=== PATIENT | male | born 1955 | race Caucasian/White ===

== ENCOUNTER 2024-09-27 19:44 | Emergency (ER) | payer OTHER, MEDICARE, SELFPAY ==
--- NOTE | ~2024-09-27 | XR_ITS ---
EXAMINATION: XR HAND, RIGHT CLINICAL INFORMATION: swelling, pain COMPARISON: None available. TECHNIQUE: PA, lateral, and oblique views of the right hand. FINDINGS: Arthritic changes are seen involving the interphalangeal joints, distally greater than proximally. Most marked changes are seen in the fifth digit where there is some lateral angulation. Degenerative changes are also present at the first CMC joint. A cyst is noted in the capitate. No acute fractures are seen. No definite bony destructive lesions are seen to suggest osteomyelitis. XR/XR hand RT 2V IMPRESSION: Arthritic changes as described above. No acute finding. 6 Electronically signed by: Camilo Rivera MD 09/27/2024 09:52 PM EST RP
[2024-09-27 20:05] VITALS: BP 128/62; PULSE 54; RESP 14; TEMP 36.6; O2SAT 95; BMI 25.7
--- NOTE | 2024-09-27 20:05 | ED.GENADULT ---
HPI - General Adult General Chief complaint: Extremity Injury, Upper Stated complaint: right hand swollen Time Seen by Provider: 09/27/24 23:11 History of Present Illness ED Provider: James VASQUEZ narrative: The patient is a 68-year-old male who says that yesterday morning he noticed that he had some redness and swelling on the dorsum of his right hand. There has been no trauma or injury that he is aware of. He says he first noticed he had a problem when he had to put a workload of onto help his son do some house projects. He said he had some pain at that time but he was able to do the work that he had planned on doing with the son during the day. Yesterday evening there was increasing redness swelling, and pain. He says the pain was severe during the night last night and interfered with sleeping. He took naproxen. Today he still had redness and swelling on the dorsum of his hand. Also some redness on the back of the fingers. He says there was a fair amount of swelling earlier. Apparently he spoke to other family members who were worried he might have a blood clot in his arm and he was encouraged to come to the hospital. He has had no fever, sweats, chills. He does not think he had any bites. He has no history of gout. The patient is a [place]. [place]. He believes he is exposed to ticks the some frequency. He does not know of any definite tick bites however. Related Data Previous Rx's ?Medication ?Instructions ?Recorded doxycycline monohydrate 100 mg 100 mg PO BID #20 caps 09/28/24 capsule Allergies Allergy/AdvReac Type Severity Reaction Status Date / Time No Known Allergies Allergy Verified 09/27/24 20:07 Review of Systems Review of Systems: Yes all other systems are reviewed and are negative PMFSH Social History Social History Advance Directives: No Advance Directives Information Provided: No Do you have a plan to hurt others: No Plan Physical Exam ED Vital Signs: Vital Signs - 24 hr 09/27/24 20:05 09/27/24 22:21 09/28/24 00:00 Temperature 97.9 F 98 F 97.8 F Pulse Rate 54 54 49 L Respiratory Rate 14 18 16 Blood Pressure 128/62 131/65 144/77 H Pulse Oximetry 95 97 94 Oxygen Delivery Method Room Air Room Air Room Air 09/28/24 00:53 Temperature 97.8 F Pulse Rate 49 L Respiratory Rate 16 Blood Pressure 144/77 H Pulse Oximetry 94 Oxygen Delivery Method Room Air BMI result Body Mass Index 25.7 Const Other: The patient is a 68-year-old male who was awake and alert. He looks as though he is quite a vigorous 68-year-old. He does not seem in acute distress. HENMT Other: Face is symmetrical. Mucous membranes moist. Eyes General: appearance normal, both eyes and all related structures Conjunctivae: conjunctivae normal Sclerae: sclerae normal Neck Other: Moving his neck easily Resp Effort & Inspection: normal respiratory effort Auscultation: clear to auscultation bilaterally Cardio Rate: regular rate Rhythm: regular rhythm Heart sounds: S1 normal heart sound present, S2 normal heart sound present and Murmur heart sound present (No murmur) Skin Other: There is some redness and swelling to the dorsum of the right hand. This does not seem to be particularly tender. No fluctuance. Neuro Other: The patient is awake and alert with a normal mental status. Cranial nerves are intact. He has normal strength and sensation in the right hand. Extrem Other: There is some mild swelling and erythema to the dorsum of the left hand. The borders of the erythema are indistinct. There is no lymphangitis in the left arm. The erythema does not seem to extend proximal to the wrist. The erythema does not seem particularly tender. I can put the wrist through a good range of motion without causing any apparent discomfort. The same is true of all the other joints of the right hand. Course Course Course Narrative: This is a rapid medical exam. Defer additional HPI, ROS, PE to primary provider. 68 yo male with no medical history, right hand dominant here with complaints of swelling/redness to top of right hand since yesterday. Denies injury. Will check x-rays HENRY Clement APRN Medications Administered Discontinued Medications Generic Name Dose Route Start Last Admin Trade Name Freq PRN Reason Stop Dose Admin Doxycycline Monohydrate 100 mg 09/28/24 00:35 09/28/24 00:47 Doxycycline Monohydrate 100 Mg Capsule PO 09/28/24 00:36 100 mg ONCE ONE Administration Medical Decision Making Medical Decision Making [facility] Narrative: The patient is a 68-year-old male with an unusual syndrome of erythema on the dorsum of his right hand. He says that he had a great deal of pain earlier and he also says that the redness and swelling looked worse earlier. This seemed to have gotten better spontaneously. He was only having minimal discomfort of the time that I saw him. Diagnostic considerations include an infectious process or gout. The patient and his were concerned about the possibility of a blood clot but I do not feel the appearance of the hand is at all suggestive of a blood clot. Overall the patient does not describe a process which is consistent either with gout or with a cellulitis. His physical exam argues against any possibility of septic arthritis. Given that he is a [place] and exposed to ticks Lyme disease could also be considered. Overall the patient looks quite well. He had unremarkable labs including a normal uric acid. Normal renal function. A Lyme screen was sent. He will be started empirically on doxycycline. He should follow up with his PCP. Lab Data 09/27/24 23:54 09/27/24 23:54 Labs: Lab Results 09/27/24 Range/Units 23:54 WBC 7.8 (4.8-10.8) X10*3/uL RBC 4.47 L (4.60-5.80) X10*6/uL Hgb 14.2 (14.0-18.0) g/dl Hct 41.5 L (42.0-52.0) % MCV 92.8 (80.0-98.0) fL MCH 31.8 (27.0-33.0) pg MCHC 34.2 (31.0-36.0) g/dl RDW 13.4 (11.0-16.0) % Plt Count 183 (160-400) X10*3/uL MPV 10.0 (9.4-12.4) fL Immature Gran % (Auto) 0.5 H (0.0-0.4) % Neut % (Auto) 62.2 (45-73) % Lymph % (Auto) 25.5 (20-40) % Cecil % (Auto) 8.1 (2-11) % Eos % (Auto) 2.7 (0-4) % Baso % (Auto) 1.0 (0-2) % Lymph # (Auto) 2.0 (1.2-4.9) X10*3/uL Cecil # (Auto) 0.6 (0.1-1.2) X10*3/uL Eos # (Auto) 0.2 (0.0-0.4) X10*3/uL Baso # (Auto) 0.1 (0.0-0.2) X10*3/uL Abs Immat Gran (auto) 0.04 H (0.00-0.03) X10*3/uL Absolute Neuts (auto) 4.8 (2.0-8.3) x10*3/uL Absolute Nucleated RBC 0.000 (0.0-0.012) X10*3/uL Nucleated RBC % (auto) 0.0 (0.0-0.2) /100WBC ESR 2 (0-15) MM/HR Sodium 143 (135-145) mmol/L Potassium 4.1 (3.3-5.1) mmol/L Chloride 109 H (96-108) mmol/L Carbon Dioxide 25 (22-29) mmol/L Anion Gap 13 (12-20) BUN 16 (9-16) mg/dL Creatinine 0.85 (0.5-1.4) mg/dL Estim Creat Clear Calc 87.0 Estimated GFR > 60 Random Glucose 106 (60-115) mg/dL Uric Acid 5.6 (3.4-7.0) mg/dL Calcium 9.0 (8.4-10.2) mg/dL Total Bilirubin 0.3 (0.0-1.0) mg/dL AST 22 (5-37) U/L ALT 10 (0-40) U/L Alkaline Phosphatase 70 (39-117) U/L C-Reactive Protein < 0.10 (< or = 0.50) mg/dL Total Protein 5.9 L (6.5-8.0) g/dL Albumin 3.8 (3.5-5.0) g/dL Discharge Plan Discharge Clinical Impression: Right hand pain Patient Disposition: Home, Self-Care Additional Instructions: It is not clear to me what is causing the problem in your right hand. Your blood testing today is reassuring. You has been started on doxycycline in case there is an infectious component to what is happening in your hand. Additionally a test for Lyme disease has been sent. Please take the doxycycline 2 times a day as prescribed. You may use naproxen or ibuprofen as needed for pain. In addition you may use acetaminophen. Please contact your regular doctor's office on Sunday to set up a follow up appointment to discuss this further. Return to the emergency room if significantly worse. Prescriptions: New doxycycline monohydrate 100 mg capsule 100 mg PO BID Qty: 20 0RF Referrals: Caio Lyle MD [Primary Care Provider] - (Pain and redness of the dorsum of the right hand) Interventions: ED Discharge Assessment Last Done: 09/28/24 00:53 Discharge Date/Time: 09/28/24 00:57 Print Language: Lithuanian
[2024-09-27 22:21] VITALS: BP 131/65; PULSE 54; RESP 18; TEMP 36.6; O2SAT 97
[2024-09-28] VITALS: BP 144/77; PULSE 49; RESP 16; TEMP 36.6; O2SAT 94
[2024-09-28] LABS: MANUAL DIFF FLAG NO
[2024-09-28 00:02] LABS: Basophils Absolute Auto 0.1 X10*3/uL (0.0-0.2); Eosinophils Absolute Auto 0.2 X10*3/uL (0.0-0.4); Eosinophils Percent Auto 2.7 % (0-4); Hematocrit 41.5 % (42.0-52.0); Hemoglobin 14.2 g/dl (14.0-18.0); Imm Gran Abs Auto 0.04 X10*3/uL (0.00-0.03); Imm Gran Pct Auto 0.5 % (0.0-0.4); Lymphocytes Percent Auto 25.5 % (20-40); Mean Corpuscular HGB Conc 34.2 g/dl (31.0-36.0); Mean Corpuscular Hemoglobin 31.8 pg (27.0-33.0); Mean Corpuscular Volume 92.8 fL (80.0-98.0); Monocytes Absolute Auto 0.6 X10*3/uL (0.1-1.2); Monocytes Percent Auto 8.1 % (2-11); Neutrophils Absolute Auto 4.8 x10*3/uL (2.0-8.3); Neutrophils Percent Auto 62.2 % (45-73); Platelet Count 183 X10*3/uL (160-400); Red Blood Count 4.47 X10*6/uL (4.60-5.80); Red Cell Distribution Width 13.4 % (11.0-16.0); White Blood Count 7.8 X10*3/uL (4.8-10.8)
[2024-09-28 00:17] LABS: Alanine Aminotransferase 10 U/L (0-40); Albumin Level 3.8 g/dL (3.5-5.0); Alkaline Phosphatase 70 U/L (39-117); Anion Gap 13 (12-20); Aspartate Amino Transferase 22 U/L (5-37); Bilirubin Total 0.3 mg/dL (0.0-1.0); Blood Urea Nitrogen 16 mg/dL (9-16); C Reactive Protein < 0.10 mg/dL (< or = 0.50); Carbon Dioxide 25 mmol/L (22-29); Chloride 109 mmol/L (96-108); Estimated Glomerular Filt Rate > 60; Glucose Random 106 mg/dL (60-115); Potassium 4.1 mmol/L (3.3-5.1); Sodium 143 mmol/L (135-145); Total Protein 5.9 g/dL (6.5-8.0); Uric Acid 5.6 mg/dL (3.4-7.0)
[2024-09-28] MEDS: Doxycycline Monohydrate 100 MG CAPSULE PO (00:47)
[2024-09-28 00:53] VITALS: BP 144/77; PULSE 49; RESP 16; TEMP 36.6; O2SAT 94
[2024-09-28 00:54] LABS: Erythrocyte Sedimentation Rate 2 MM/HR (0-15)
[2024-09-30 12:52] LABS: Lyme Abs Screen <0.90 index
== END 2024-09-28 00:57 | disposition home or self-care (01) ==
PROVIDERS: Emergency Provider Emergency Medicine; PCP Internal Medicine
DX: M79.641 Pain in right hand (principal)
CPT/HCPCS: 36415; 73120; 80053; 84550; 85025; 85652; 86140; 86617; 86618; 99283; 99284

== ENCOUNTER 2025-06-06 13:50 | Emergency (ER) | payer MEDICARE, SELFPAY ==
--- NOTE | 2025-06-06 | ECG_ITS ---
Test Reason : ABD PAIN Blood Pressure : */* mmHG Vent. Rate : 44 BPM Atrial Rate : 44 BPM P-R Int : 160 ms QRS Dur : 84 ms QT Int : 450 ms P-R-T Axes : 69 5 31 degrees QTcB Int : 384 ms Marked sinus bradycardia Abnormal ECG No previous ECGs available Referred By: Generic ED Physician Electronically Signed By: Chase Dubon
--- NOTE | ~2025-06-06 | US_ITS ---
CLINICAL HISTORY: gallbladder Us r o carlos US abdomen limited Comparison: None provided Findings: The common duct is 0.4-0.8 cm in diameter. The gallbladder is normal. There is no sonographic Mcmanus sign. IMPRESSION: Unremarkable ultrasound of the gallbladder. This document has been electronically signed by: Carmen Romero MD on 06/06/2025 16:39:40
--- NOTE | ~2025-06-06 | CT_ITS ---
CLINICAL HISTORY: renal colic CT abdomen and pelvis without contrast Comparison: None Findings: Examination is limited by without contrast. Lung bases are clear. No pleural effusion. Liver, Pancreas, Spleen and both adrenals show normal size, shape and attenuation on present unenhanced scan. No CBD dilatation. No calcified gallstone in the gallbladder. Both kidneys reveal normal in size, shape, position and attenuation. Limited evaluation of the cystic lesions of the bilateral kidney. A small cystic lesion in the right kidney has peripheral calcification. No kidney stone. Mild right hydroureteronephrosis. The IVC, aorta and portal vein are within normal position and caliber. Atherosclerosis calcification of the aorta. No evidence of retroperitoneal lymphadenopathy or ascites. Multiple calcifications of the pelvis are likely to be phleboliths. The visible parts of the bowel loops show no obvious mass lesions or wall thickening. Appendix appears normal. 3 mm stone of the right posterior bladder/ureterovesicular junction series 3, image 71. Prostatomegaly. Degenerative changes of the spine. IMPRESSION: Mild right hydroureteronephrosis. 3 mm stone of the right posterior bladder/ureterovesicular junction. A mild complex cyst of the right kidney. Further evaluation by nonemergent renal ultrasound is recommended as indicated. Additional findings as above. This document has been electronically signed by: Carmen Romero MD on 06/06/2025 19:39:23
--- NOTE | ~2025-06-06 | XR_ITS ---
CLINICAL HISTORY: chest pain 2 view chest x-ray Comparison: None provided Findings: No consolidation or effusion. Heart size is normal. No acute fracture. IMPRESSION: 1. No acute findings. This document has been electronically signed by: Carmen Romero MD on 06/06/2025 16:32:16
[2025-06-06 13:55] VITALS: BP 138/57; BP 169/78; PULSE 43; PULSE 47; RESP 17; TEMP 36.7; O2SAT 93; O2SAT 96; BMI 25.7
[2025-06-06 14:10] VITALS: BP 145/68; PULSE 43; RESP 14; O2SAT 88; O2SAT 92
--- OUTSIDE RECORDS SUMMARY | 2025-06-06 14:31 | XMS_ITS | Clinical Summary ---
Author Organization [facility] Address [facility] [address] [address] Phone Care Team Providers Care E Commerce Developer Name Role Phone Caio Lyle MD Primary Care Provider [phone] Allergies No known active allergies Medications acetaminophen (TYLENOL) 325 mg tablet Take 2 tablets (650 mg total) by mouth every 4 (four) hours as needed for mild pain or fever. 0 6 Active Additional Information Patient not taking.Reported on 05/10/2016 aspirin 325 MG tablet Take 1 tablet (325 mg total) by mouth daily. 6 Active Additional Information Patient not taking.Reported on 05/10/2016 oxyCODONE 5 MG immediate release tablet Take 1-2 tablets (5-10 mg total) by mouth every 3 (three) hours as needed for moderate pain. Earliest Fill Date: 02/08/16 50 tablet 0 6 Active Additional Information Patient not taking.Reported on 05/10/2016 cefadroxil (DURICEF) 500 MG capsule Take 1 capsule (500 mg total) by mouth 2 (two) times a day. 20 capsule 0 6 Active Additional Information Patient not taking.Reported on 05/10/2016 oxyCODONE 5 MG immediate release tablet Take 1-2 tablets (5-10 mg total) by mouth every 4 (four) hours as needed for moderate pain. 60 tablet 0 6 Active Additional Information Patient not taking.Reported on 05/10/2016 oxyCODONE 5 MG immediate release tablet Take 1 tablet (5 mg total) by mouth every 4 (four) hours as needed for moderate pain. 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 Not on tera e 02/16/2023 Are you concerned about learning? Not on file 02/16/2023 No 02/16/2023 No 02/16/2023 Digital Access Answer Date Recorded No 03/19/2023 No 03/19/2023 No 03/19/2023 Reliable internet access at home? Not on file 03/19/2023 Device with a working camera? Not on file Sex and Gender Information Value Date Recorded Sex Assigned at Not on file Legal Sex Male 12:24 PM EDT Gender Identity Not on file Sexual Orientation Not on file Last Filed Vital Signs Vital Sign Reading Time Taken Comments Blood Pressure 136/68 02/08/2016 1:00 PM EDT Pulse 60 02/08/2016 1:00 PM EDT Temperature 36.5 C (97.7 F) 08/02/2016 1:51 PM EDT Respiratory Rate 20 02/08/2016 1:00 PM EDT Oxygen Saturation 95% 02/08/2016 1:00 PM EDT Inhaled Oxygen Concentration - - Weight 83 kg (183 lb) 08/02/2016 1:51 PM EDT Height 177.8 cm (5' 10 ) 08/02/2016 1:51 PM EDT Body Mass Index 26.26 08/02/2016 1:51 PM EDT Plan of Treatment Health Maintenance Due Date Last Done Comments Adult Td,Tdap Booster 1956 LIPID PANEL 1956 DEPRESSION SCREENING 1968 HEPATITIS C SCREENING 1974 COLOGUARD 2001 COLONOSCOPY 2001 COLORECTAL CANCER SCREENING 2001 FIT TEST 2001 FOBT 2001 SIGMOIDOSCOPY 2001 VIRTUAL COLONOSCOPY 2001 PNEUMOCOCCAL VACCINES (50+ y ears) (1 of 1 - PCV) 2006 ZOSTER VACCINES (1 of 2) 2006 COVID-19 VACCINE (1 - 2023-2 5 season) 2024 RSV VACCINE (1 - 1-dose 75+ series) 2031 SMOKING STATUS SCREENING (On ce After 26 Yrs) Completed 08/02/2016 HEPATITIS A VACCINES Aged Out No long er eligible based on patient's age to complete this topic HIB VACCINES Aged Out No longer eligi ble based on patient's age to complete this topic MENINGOCOCCAL VACCINES (ACWY) Aged Out No longer eligible based on patient's age to complete this topic MENINGOCOCCAL VACCINES (B) Aged Out N o longer eligible based on patient's age to complete this topic Medical Devices Implanted Type Area Commercial Green Building Architect Device Identifier Shelf Expiration Date Model / Serial / Lot Wire Alonzo [id number] Stainless Steel Ea - [id number] Implanted:Qty: 1 on 02/07/2016 by Wild Patel MD at [facility] Right: Finger OSTEOMED [id number] / / Description:right 4th finger ; no lot# or exp date Wire Alonzo [id number] Stainless Steel Ea - [id number] Implanted:Qty: 1 on 02/07/2016 by Wild Patel MD at [facility] Right: Finger OSTEOMED [id number] / / Description:right 5th finger ; no lot# or exp date Insurance A[employer] HMO POS EPO AETNA O POS EPO O POS EPO AETNA O POS EPO O POS EPO AETNA O POS EPO O POS EPO AETNA HMO POS EPO WORKERS COMPENSATION Advance Directives For more information, please contact: [phone] (9AM - 5PM [facility], Sunday-Sunday) * Full Code (Presumed) (Latest Code Status on File) Date Activated Date Inactivated Comments 02/07/2016 9:45 PM 02/08/2016 7:03 PM Care Teams E Commerce Developer Relationship Specialty Start Date End Date Caio Lyle MD [address] [address] PCP - General Internal Medicine 02/16/16 Additional Source Comments The information contained in this document represents components of the legal health record. It is not the complete legal health record.[facility]
--- OUTSIDE RECORDS SUMMARY | 2025-06-06 14:31 | XMS_ITS | Encounter Summary ---
Author Organization [facility] Address [address] [place] [address] Care Team Providers Care Marketing Database Analyst Name Role Phone Caio Lyle MD Primary Care Provider [phone] Encounter Details Date Type Department Care Team (Late st Contact Info) Description 01/12/2025 Lab Requisition [facility] - Main Lab [address] [facility] [place] [address] Andrew Pathak MD [address] [place] [id number] Elevated prostate specific antigen (PSA) Social History Tobacco Use Types Packs/Day Years Used Date Smoking Tobacco: Former Cigarettes Smokeless Tobacco: Never Alcohol Use Standard Drinks/Week Comments Not Currently 0 (1 standard drink = 0.6 oz pur e alcohol) Interpersonal Safety Answer Date Record ed Physical Abuse 12/26/2024 Verbal Abuse 12/26/2024 Sex and Gender Information Value Date Recorded Sex Assigned at Male 12/25/2024 9:52 AM EST Legal Sex Male 9:09 AM EST Gender Identity Male 12/25/2024 9:52 AM EST Sexual Orientation Straight 12/25/2024 9: 52 AM EST documented as of this encounter Plan of Treatment Not on file documented as of this encounter Procedures Procedure Name Priority Date/Time Associated Diagnosis Comments FLUOROQUINOLONE RESISTANT GNR IDENTIFICATION AND SUSCEPTIBILITY Routine 01/12/2025 8:04 AM EDT Elevated prostate specific antigen (PSA) CULTURE FLUOROQUINOLONE RESISTANT ORGANISM Routine 01/12/2025 8:04 AM EDT Elevated prostate specific antigen (PSA) documented in this encounter Results * Fluoroquinolone resistant GNR identification and susceptibility (01/12/2025 8:04 AM EDT) Result 1 No Fluoroquinolone Resistant GNR Detected. 01/16/2025 2:05 PM EDT [facility] Swab Rectum structure / Unknown Non-blood Collection / Unknown 01/12/2025 8:04 AM EDT 01/12/2025 10:18 AM EDT Narrative [facility] - 01/16/2025 2:05 PM EDT Performed at: 01 - [address] [id number] Truck Caterer: Almaz Ac MD, Phone: [phone] us Andrew Pathak MD LAB MICROBIOLOGY - GENERAL ORDER LANCE Final Result Performing Organization Address City/[facility]/ZIP Co de Phone Number [facility] * Culture fluoroquinolone resistant organism (01/12/2025 8:04 AM EDT) Fluoroquinolone Resist GNR Cul Final report 01/16/2025 2:05 PM EDT [facility] Swab Rectum structure / Unknown Non-blood Collection / Unknown 01/12/2025 8:04 AM EDT 01/12/2025 10:18 AM EDT Narrative [facility] - 01/16/2025 2:05 PM EDT Performed at: [facility] [id number] Truck Caterer: Almaz Ac MD, Phone: [phone] us Andrew Pathak MD LAB MICROBIOLOGY - GENERAL ORDER LANCE Final Result [facility] documented in this encounter Visit Diagnoses Diagnosis Elevated prostate specific antigen (PSA) documented in this encounter Care Teams Marketing Database Analyst Relationship Specialty Start Date End Date Caio Lyle MD PCP - General Internal Medicine 12/09/24 documented as of this encounter
[2025-06-06 14:40] LABS: MANUAL DIFF FLAG NO
--- NOTE | 2025-06-06 14:40 | PC.NURSE ---
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 pt reports associated nausea. denies any episodes of vomiting/diarrhea/fevers/chills. 75mcg fentanyl/4mg zofran HUMAN DEVELOPMENT PROFESSOR. pain improved s/p medication administration. hx diverticulitis/colon resection. recently dx w/ prostate cancer x 2 months ago - no current medications. upon ED arrival - a&ox4. vss and up to date aside from being bradycardic - pt reports HR in the 40s is his baseline. pt denies any chest pain/palpitations. pt also noted to be 89% on RA - denies hx asthma/copd. no sob/wob. pt placed on 2L via NC for supplemental O2. 20gIV in the left AC via EMS - patent/intact. tech bedside obtaining labs/performing ekg. pt pending to be picked up by provider. plan of care ongoing. call ziegler placed within reach.
[2025-06-06 14:44] LABS: Hematocrit 40.0 % (42.0-52.0); Hemoglobin 14.0 g/dl (14.0-18.0); Imm Gran Abs Auto 0.07 X10*3/uL (0.00-0.03); Imm Gran Pct Auto 0.6 % (0.0-0.4); Lymphocytes Absolute Auto 0.9 X10*3/uL (1.2-4.9); Mean Corpuscular HGB Conc 35.0 g/dl (31.0-36.0); Mean Corpuscular Hemoglobin 31.4 pg (27.0-33.0); Mean Corpuscular Volume 89.7 fL (80.0-98.0); NRBC Abs Auto 0.000 X10*3/uL (0.0-0.012); NRBC Pct Auto 0.0 /100WBC (0.0-0.2); Platelet Count 200 X10*3/uL (160-400); Red Blood Count 4.46 X10*6/uL (4.60-5.80); White Blood Count 12.1 X10*3/uL (4.8-10.8)
--- NOTE | 2025-06-06 14:48 | ED.ABDPAIN ---
HPI - Abdominal Pain General Chief Complaint: Abdominal Pain Stated Complaint: BACK PAIN Time Seen by Provider: 06/06/25 14:23 Source: patient Mode of arrival: ambulatory Limitations: no limitations History of Present Illness ED Provider: HPI narrative: 69-year-old male with multiple abdominal surgeries in the past, presenting with sudden onset of right upper quadrant abdominal pain, if it was documented in the right lower quadrant in triage it is a mistake, as he was cooking, it was sudden radiating up around to his flank, had an episode of nausea but no vomiting has had no chest pain no shortness of breath no fevers or chills, EMS provided 7 5 mcg of fentanyl and Zofran prior to arrival with improvement in his symptoms. He is brought to see his provider for prostate cancer that was diagnosed 2 months ago he is not on any medications at this time. No obstipation reported. Related Data Previous Rx's ?Medication ?Instructions ?Recorded doxycycline monohydrate 100 mg 100 mg PO BID #20 caps 09/28/24 capsule famotidine 40 mg tablet (Pepcid) 40 mg PO BEDTIME #60 tabs 06/06/25 oxycodone 5 mg tablet 5 mg PO Q6H PRN pain #10 tabs 06/06/25 Allergies Allergy/AdvReac Type Severity Reaction Status Date / Time No Known Allergies Allergy Verified 06/06/25 13:58 Review of Systems Constitutional: Reports as per [facility] Social History Social History Smoked in Last 30 Days: No Use of substances other than those prescribed or required for medical reasons: No Advance Directives: No Advance Directives Information Provided: Yes Do you have a plan to hurt others: No Plan Physical Exam ED Vital Signs: Vital Signs - 24 hr 06/06/25 13:55 06/06/25 14:10 06/06/25 14:10 Temperature 98.0 F Pulse Rate 47 L 43 L Respiratory Rate 17 14 Blood Pressure 138/57 L 145/68 H Pulse Oximetry 93 88 L 92 Oxygen Delivery Method Room Air Room Air Nasal Cannula Oxygen Flow Rate 2 06/06/25 16:35 06/06/25 19:16 Temperature 97.7 F 97.8 F Pulse Rate 47 L 46 L Respiratory Rate 15 14 Blood Pressure 128/62 137/66 Pulse Oximetry 93 95 Oxygen Delivery Method Room Air Room Air Oxygen Flow Rate BMI result Body Mass Index 25.7 Course Reevaluation(s) Reevaluation #1: I assumed care for this patient at 17:00 patient was waiting for result of the CT of the abdomen and pelvis. While patient in the ED and reviewing vital sign patient noted to be bradycardic patient declined any symptoms in particular no lightheadedness, no LOC, no headache, no palpitation, no chest pain, patient stated that he is very healthy and his heart rate is been on the lower side all his life, patient go to gym 3 to 4 times a week. Slight lipase elevation patient has no epigastric pain, vomiting. CT abdomen pelvis reveals:Mild right hydroureteronephrosis. 3 mm stone of the right posterior bladder/ureterovesicular junction. A mild complex cyst of the right kidney. Further evaluation by nonemergent renal ultrasound is recommended as indicated. Additional findings as above. Patient currently has no pain sitting comfortably. Patient will see his urologist this week patient was provided with a copy of CT report to reviewed with his urologist for a concern of complex cystic lesion on right kidney and recommended ultrasound; those finding were discussed with the patient and . Time: 20:10 Medical Decision Making Medical Decision Making [facility] Narrative: Presenting with right upper quadrant pain, considerations for workup as below, we will make sure this is not pulmonary, ACS related, highest differential is whether this is cholecystitis versus musculoskeletal pain, has already been medicated with fentanyl that will explain his bradycardia and he was slightly hypoxic on presentation but by the time I have evaluated him I have removed him off nasal cannula and he was doing well on room air, disposition to be determined. 16:36 continues to be pain-free Chest x-ray unremarkable, ultrasound we will await official report but there was no evidence for choledocholithiasis or cholecystitis Urine reveals blood we will order noncontrast CT to evaluate for kidney stones Differential Diagnosis Differential Diagnoses: The differential diagnosis associated with the presentation includes (Cholecystitis, pancreatitis, hepatitis, gastritis, cholangitis, choledocholithiasis, SBO, ACS) Admission/Observation Consideration of admission/observation: Escalation of care including admission/observation considered 2022 Emergency Medicine Coding Guide from [email or web address] on 06/06/2025 All calculations should be rechecked by clinician prior to use RESULT SUMMARY: 5 Estimated Level of Service Problems: Moderate (4) Risk: High (5) Data: Extensive (5) NARRATIVE MDM: This patient's problem complexity is Moderate as patient: has a new undiagnosed problem with uncertain prognosis but that could be serious. This patient's risk is High due to: overall presentation requiring evaluation for a potentially High-risk process. This patient's data complexity is Extensive due to: -multiple tests ordered/reviewed -external notes reviewed -independent historian used to support history -independent interpretation of imaging or EKG INPUTS: Number and Complexity ?> 5 = 4: undiagnosed new problem, uncertain outcome (e) Risk level ?> 4 = High Tests ordered ?> 3 = =3 Tests results reviewed (excluding labs) ?> 3 = =3 Prior external notes reviewed ?> 1 = 1 Assessment requiring and independent historian ?> 1 = Yes Independent interpretation of tests ?> 1 = Yes Discussed management/test interpretation w/external professional ?> 0 = No Lab Data MDM Lab Attestation statement: I reviewed the patient's lab results. 06/06/25 14:35 06/06/25 14:35 Labs: Lab Results 06/06/25 06/06/25 Range/Units 14:35 16:27 WBC 12.1 H (4.8-10.8) X10*3/uL RBC 4.46 L (4.60-5.80) X10*6/uL Hgb 14.0 (14.0-18.0) g/dl Hct 40.0 L (42.0-52.0) % MCV 89.7 (80.0-98.0) fL MCH 31.4 (27.0-33.0) pg MCHC 35.0 (31.0-36.0) g/dl RDW 13.7 (11.0-16.0) % Plt Count 200 (160-400) X10*3/uL MPV 9.9 (9.4-12.4) fL Immature Gran % (Auto) 0.6 H (0.0-0.4) % Neut % (Auto) 86.1 H (45-73) % Lymph % (Auto) 7.1 L (20-40) % [place] % (Auto) 5.0 (2-11) % Eos % (Auto) 0.8 (0-4) % Baso % (Auto) 0.4 (0-2) % Lymph # (Auto) 0.9 L (1.2-4.9) X10*3/uL [place] # (Auto) 0.6 (0.1-1.2) X10*3/uL Eos # (Auto) 0.1 (0.0-0.4) X10*3/uL Baso # (Auto) 0.1 (0.0-0.2) X10*3/uL Abs Immat Gran (auto) 0.07 H (0.00-0.03) X10*3/uL Absolute Neuts (auto) 10.4 H (2.0-8.3) x10*3/uL Absolute Nucleated RBC 0.000 (0.0-0.012) X10*3/uL Nucleated RBC % (auto) 0.0 (0.0-0.2) /100WBC Sodium 141 (135-145) mmol/L Potassium 3.6 (3.3-5.1) mmol/L Chloride 111 H (96-108) mmol/L Carbon Dioxide 24 (22-29) mmol/L Anion Gap 10 L (12-20) BUN 14 (9-16) mg/dL Creatinine 0.94 (0.5-1.4) mg/dL Estim Creat Clear Calc 75.2 Estimated GFR > 60 Random Glucose 128 H (60-115) mg/dL Calcium 9.0 (8.4-10.2) mg/dL Magnesium 2.0 (1.6-2.6) mg/dL Total Bilirubin 0.6 (0.0-1.0) mg/dL Direct Bilirubin 0.2 (0.0-0.5) mg/dL AST 25 (5-37) U/L ALT 7 (0-40) U/L Alkaline Phosphatase 65 (39-117) U/L Troponin I High Sens 4.3 (<3.5-35.0) ng/L Total Protein 6.1 L (6.5-8.0) g/dL Albumin 4.1 (3.5-5.0) g/dL Lipase 177 H (8-78) U/L Urine Color Yellow Urine Appearance Clear Urine pH 5.5 (5.0-9.0) Ur Specific [place] 1.020 (1.005-1.025) Urine Protein Negative (Neg-Trace) mg/dL Urine Glucose (UA) Negative (Negative) mg/dL Urine Ketones Trace (Negative) mg/dL Urine Blood Moderate (2+) H (Negative) Urine Nitrite Negative (Negative) Ur Leukocyte Esterase Negative (Negative) Urine RBC >20 H (0-2) /HPF Urine WBC 0-5 (0-5) /HPF Ur Squamous Epith Cells 0-2 (0-2) /HPF Urine Bacteria None Seen (None Seen) Hyaline Casts 0-2 (0-2) /LPF Independent Interpretation I performed an independent interpretation of an: EKG, Plain X-Ray (My independent chest xray interpretation: Lungs: Lungs are clear bilaterally without evidence of focal consolidation, pleural effusion, or pneumothorax. Cardiac silhouette is unremarkable, no obvious mediastinal widening, no obvious bony abnormalities such as fractures. Impression: Normal chest X-r) and Ultrasound (No CBD dilation and gallbladder wall under 3 mm) Radiology Impression Discussion of test interpretation with radiology: I have reviewed the radiologist's reading. Prescription Management I considered prescription management with: Pain Medication Medications Administered Discontinued Medications Generic Name Dose Route Start Last Admin Trade Name Freq PRN Reason Stop Dose Admin Ketorolac Tromethamine 15 mg 06/06/25 15:09 06/06/25 15:20 Ketorolac Tromethamine 15 Mg/Ml Vial IVPUSH 06/06/25 15:10 15 mg ONCE ONE Administration Discharge Plan Discharge Clinical Impression: Acute right flank pain, Acid reflux, Renal colic on right side, Right ureteral stone, Renal mass, right Patient Disposition: Home, Self-Care Instructions: Renal Colic (ED) Additional Instructions: Follow-up with your urologist as scheduled this week. Prescriptions: New famotidine [Pepcid] 40 mg tablet 40 mg PO BEDTIME Qty: 60 0RF oxycodone 5 mg tablet 5 mg PO Q6H PRN (Reason: pain) Qty: 10 0RF Rx Instructions: Partial Fill upon patient request. No Action doxycycline monohydrate 100 mg capsule 100 mg PO BID Qty: 20 0RF Referrals: Caio Lyle MD [Primary Care Provider, Internal Medicine] Clinical Impression: Acute right flank pain; Acid reflux Print Language: Portuguese
[2025-06-06 14:55] LABS: Alanine Aminotransferase 7 U/L (0-40); Albumin Level 4.1 g/dL (3.5-5.0); Alkaline Phosphatase 65 U/L (39-117); Anion Gap 10 (12-20); Aspartate Amino Transferase 25 U/L (5-37); Blood Urea Nitrogen 14 mg/dL (9-16); Calcium 9.0 mg/dL (8.4-10.2); Carbon Dioxide 24 mmol/L (22-29); Chloride 111 mmol/L (96-108); Creatinine Clr Calc Pharmacy 75.2; Estimated Glomerular Filt Rate > 60; Lipase 177 U/L (8-78); Magnesium 2.0 mg/dL (1.6-2.6); Potassium 3.6 mmol/L (3.3-5.1); Sodium 141 mmol/L (135-145); Total Protein 6.1 g/dL (6.5-8.0)
[2025-06-06 15:02] LABS: Troponin-I High Sensitivity 4.3 ng/L (<3.5-35.0)
--- NOTE | 2025-06-06 15:45 | PC.NURSE ---
pt medicated per provider order. effectiveness pending. pt waiting for abd US to be resulted at this time. bedside for support. plan of care ongoing. call ziegler placed within reach.
[2025-06-06 16:35] VITALS: BP 128/62; PULSE 47; RESP 15; TEMP 36.5; O2SAT 93
[2025-06-06 16:35] LABS: Appearance Urine Clear; Glucose Urine UA Negative (Negative); PH 5.5 (5.0-9.0); Specific Gravity - Urine 1.020 (1.005-1.025); UMIC TRIGGER UACC YES
[2025-06-06 19:16] VITALS: BP 137/66; PULSE 46; RESP 14; TEMP 36.6; O2SAT 95
--- NOTE | 2025-06-06 19:16 | PC.NURSE ---
this rn assumed care of pt, pt resting in stretcher, no acute distress noted, awaiting ct scan
[2025-06-06 20:14] VITALS: BP 156/70; PULSE 45; RESP 12; TEMP 36.3; O2SAT 95
[2025-06-06 20:35] VITALS: BP 156/70; PULSE 45; RESP 12; TEMP 36.3; O2SAT 95
== END 2025-06-06 20:36 | disposition home or self-care (01) ==
PROVIDERS: Emergency Medicine; Emergency Provider Emergency Medicine; PCP Internal Medicine
DX: K21.9 Gastro-esophageal reflux disease without esophagitis (principal); N20.1 Calculus of ureter; N28.89 Other specified disorders of kidney and ureter; R00.1 Bradycardia, unspecified; R10.2 Pelvic and perineal pain; Z79.899 Other long term (current) drug therapy
CPT/HCPCS: 36415; 71046; 74176; 76705; 80053; 81001; 82248; 83690; 83735; 84484; 85025; 93005; 96374; 99284; 99285; J1885

== ENCOUNTER → 2025-06-06 14:17 | Outpatient (BNV) | payer MEDICARE, SELFPAY | PROVIDERS: Emergency Provider Emergency Medicine; PCP Internal Medicine; Visit Provider Internal Medicine Cardiovascular Disease | DX: R00.1 Bradycardia, unspecified (principal) | CPT/HCPCS: 93010 ==

== ENCOUNTER → 2025-06-06 14:48 | Outpatient (BNV) | payer MEDICARE, SELFPAY | PROVIDERS: Emergency Provider Emergency Medicine; PCP Internal Medicine; Visit Provider Nuclear Medicine | DX: N20.1 Calculus of ureter (principal); R10.11 Right upper quadrant pain; R07.9 Chest pain, unspecified | CPT/HCPCS: 71046; 74176; 76705 ==